=== PATIENT | female | born 1955 | race Caucasian/White ===

== ENCOUNTER → 2021-04-08 | Outpatient (CLI) | payer MEDICARE, OTHER | LOC: KOH-I 14:35 | DX: M25.561 Pain in right knee (principal); M17.11 Unilateral primary osteoarthritis, right knee | CPT/HCPCS: 73564 ==

== ENCOUNTER 2021-07-14 15:57 | Emergency (ER) | payer MEDICARE, OTHER ==
[~2021-07-14] VITALS: Ht 160 cm; Wt 101.6 kg
[2021-07-14 16:27] LABS: HEMOGLOBIN 13.6 gm/dl (12.3-15.3); RED BLOOD COUNT 4.74 M/UL (4.00-5.10); WHITE BLOOD COUNT 9.9 K/UL (4.5-11.0)
[2021-07-14] MEDS ORDERED: IMODIUM CAP 2 MG2 MG PO (18:42)
[2021-07-14] MEDS ORDERED: K-DUR TAB 20 M20 MEQ PO (18:42)
[2021-07-14] MEDS ORDERED: ONDANSETRON ODT4 MG SL (18:42)
== END 2021-07-14 19:03 | disposition home or self-care (01) ==
LOC: ER1 15:57
PROVIDERS: Physician Assistant
DX: U07.1 COVID-19 (principal); J12.82 Pneumonia due to coronavirus disease 2019; E87.6 Hypokalemia; I95.9 Hypotension, unspecified; R11.2 Nausea with vomiting, unspecified; E86.0 Dehydration
CPT/HCPCS: 71045; 80053; 82550; 82553; 83874; 84484; 85025; 93005; 99285